=== PATIENT | male | born 1985 | race Caucasian/White ===

== ENCOUNTER 2020-10-25 13:10 | Emergency (ER) | payer SELFPAY ==
[2020-10-25 15:06] LABS: Basophils % 0.8 % (0-1.3); Hematocrit 45.1 % (39.6-49.0); RBC Red Blood Cell Count 4.89 M/uL (4.33-5.43)
[2020-10-25 15:16] LABS: Bilirubin Direct 0.2 mg/dL (0-0.2); Bilirubin Total 0.7 mg/dL (0.2-1.0); Protein, Total 8.1 g/dL (6.4-8.2)
[2020-10-25 15:28] LABS: Urine Appearance CLEAR (Clear); Urine Bilirubin NEGATIVE (Negative); Urine Blood NEGATIVE (Negative); Urine Color YELLOW (Yellow); Urine Glucose NEGATIVE (Negative); Urine Protein NEGATIVE (Negative); Urine Urobilinogen 0.2 mg/dL (0.2-1.0)
[2020-10-25 15:29] LABS: Urine Microscopic Reflex NO UMIC
--- NOTE | 2020-10-25 19:15 | RAD REPORT ---
EXAM DESCRIPTION: CTAbdomen Pelvis W Contrast - 10/25/2020 7:06 pm CLINICAL HISTORY: . abd pain COMPARISON: No comparisons TECHNIQUE: Biphasic CT imaging of the abdomen and pelvis was performed with 100 ml non-ionic IV cont rast. All CT scans are performed using dose optimization technique as appropriate and may include automated exposure control or mA/KV adjustment according to patient size. FINDINGS: Lower chest: No acute abnormality. Liver: No acute abnormality or suspicious lesions. Hepatic steatosis. Biliary: Cholelithiasis without CT evidence acute cholecystitis. Stomach: No significant focal abnormality. Duodenum: No significant focal abnormality. Pancreas: No significant abnormality. Spleen: No significant abnormality. Adrenal: No suspicious lesions. Kidney/ureter: No hydronephrosis. No renal calculi. Retroperitoneum: No retroperitoneal adenopathy. Vascular: No aneurysm. Bowel: No significant focal abnormality. Normal appendix. Peritoneum: No ascites or free air. Bladder: Grossly unremarkable. Reproductive: No adnexal masses. Bones: No acute fracture. Other: n/a IMPRESSION: No acute intra-abdominal or pelvic finding. Cholelithiasis without CT evidence of acute cholecystitis. Hepatic steatosis.
--- NOTE | 2020-10-25 21:16 | RAD REPORT ---
EXAM DESCRIPTION: US - Abdomen Exam Limited - 10/25/2020 8:47 pm CLINICAL HISTORY: gallbladder COMPARISON: Abdomen Pelvis W Contrast dated 10/25/2020 FINDINGS: The gallbladder demonstrates calcified gallstones. No pericholecystic fluid or gallbladder wall thickening. The common bile duct is normal measuring 3 millimeter. The liver demonstrates no findings of intrahepatic biliary dilatation. IMPRESSION: Cholelithiasis without sonographic evidence of acute cholecystitis.
--- NOTE | 2020-10-25 21:30 | ER ---
Nurse's Notes [facility] Name: Rickey Orozco Age: 35 yrs Sex: Male : 1985 Arrival Date: 10/25/2020 Time: 13:16 Bed 16 Private MD: Diagnosis: Other cholelithiasis without obstruction Presentation: 10/25 14:30 Chief complaint: Patient states: RLQ pain that began "while ago but yesterday got more aa5 frequent and painful". Pt denies nausea/vomiting. Coronavirus screen: At this time, the client does not indicate any symptoms associated with coronavirus-19. Ebola Screen: Patient negative for fever greater than or equal to 101.5 degrees Fahrenheit, and additional compatible Ebola Virus Disease symptoms. Initial Sepsis Screen: Does the patient meet any 2 criteria? No. Patient's initial sepsis screen is negative. Does the patient have a suspected source of infection? No. Patient's initial sepsis screen is negative. Risk Assessment: Do you want to hurt yourself or someone else? Patient reports no desire to harm self or others. Onset of symptoms was 2020. 14:30 Method Of Arrival: Ambulatory aa5 14:30 Acuity: GALLITO 3 aa5 Historical: - Allergies: 14:31 No Known Allergies; aa5 - PMHx: 14:31 None; aa5 - PSHx: 14:31 hernia as an ; aa5 - Immunization history:: Client reports receiving the 2nd dose of the Covid vaccine. - Social history:: Smoking status: Patient reports the use of cigarette tobacco products, smokes one-half pack cigarettes per day. Screenin:51 Abuse screen: Denies threats or abuse. Denies injuries from another. Nutritional ch5 screening: No deficits noted. Tuberculosis screening: No symptoms or risk factors identified. Fall Risk None identified. Assessment: 16:51 Reassessment: No changes from previously documented assessment. GI: Bowel sounds ch5 hypoactive in right upper quadrant, left upper quadrant, right lower quadrant and left lower quadrant 16:51 Pain: Complains of pain in abdomen Pain currently is 0 out of 10 on a pain scale. Pain ch5 began Onset "months ago but worst yesterday". GI: Reports. Vital Signs: 14:30 BP 135 / 79; Pulse 72; Resp 18 S; Temp 98.1(TE); Pulse Ox 99% on R/A; Height 6 ft. 2 aa5 in. (187.96 cm) (R); 16:57 BP 136 / ???; Weight 102.06 kg; Height 6 ft. 2 in. (187.96 cm); Pain 0/10; ch5 22:11 BP 134 / 86; Pulse 72; Resp 18; Temp 98.2; Pulse Ox 99% on R/A; ch4 16:57 Body Mass Index 28.89 (102.06 kg, 187.96 cm) 5 ED Course: 13:16 Patient arrived in ED. as 14:30 Arm band placed on. aa5 14:31 Triage completed. aa5 16:44 John Paul Luz PA is PHCP. cp 16:44 Sita Lr MD is Attending Physician. cp 16:51 Edvin Mistry, RN is Primary Nurse. 5 16:51 Patient has correct armband on for positive identification. Bed in low position. Call ch5 light in reach. Side rails up X2. 16:51 No provider procedures requiring assistance completed. Inserted saline lock: 20 gauge ch5 in right antecubital area, using aseptic technique. 21:28 Jed Galdamez MD is Referral Physician. cp 22:12 IV discontinued, intact, bleeding controlled, No redness/swelling at site. Pressure ch4 dressing applied. Administered Medications: No medications were administered Outcome: 21:29 Discharge ordered by . cp 22:12 Patient left the ED. ch4 Signatures: Surekha Sen Audri, RN RN 5 John Paul Luz PA PA cp Hanna Davis, GRECIA PAIGE [facility] Edvin Mistry RN RN [facility]
--- NOTE | 2020-10-25 21:30 | EDPHYS ---
Physician Documentation [facility] Name: Rickey Orozco Age: 35 yrs Sex: Male : 1985 Arrival Date: 10/25/2020 Time: 13:16 Bed 16 Private MD: ED Physician Sita Lr HPI: 10/25 16:50 This 35 yrs old Male presents to ER via Ambulatory with complaints of cp Abdominal Pain. 16:50 The patient presents with abdominal pain right flank. cp 16:50 Onset: The symptoms/episode began/occurred "awhile ago" became persistent yesterday. cp The symptoms do not radiate. Associated signs and symptoms: Pertinent negatives: anorexia, chest pain, constipation, diarrhea, dysuria, fever, testicular pain, vomiting. The symptoms are described as achy, waxing/waning. Historical: - Allergies: 14:31 No Known Allergies; aa5 - PMHx: 14:31 None; aa5 - PSHx: 14:31 hernia as an ; aa5 - Immunization history:: Client reports receiving the 2nd dose of the Covid vaccine. - Social history:: Smoking status: Patient reports the use of cigarette tobacco products, smokes one-half pack cigarettes per day. ROS: 17:00 Constitutional: Negative for body aches, chills, fever, poor PO intake. cp 17:00 Eyes: Negative for injury, pain, redness, and discharge. cp 17:00 ENT: Negative for ear pain, sore throat, difficulty swallowing, difficulty handling secretions. 17:00 Cardiovascular: Negative for chest pain, palpitations. 17:00 Respiratory: Negative for cough, shortness of breath, wheezing. 17:00 Abdomen/GI: Positive for abdominal pain, nausea, of the anterior aspect of right lateral abdomen and right lower quadrant, Negative for vomiting, diarrhea, constipation, anorexia, black/tarry stool, rectal bleeding. 17:00 Back: Negative for radiated pain. 17:00 Neuro: Negative for altered mental status, headache, weakness. 17:00 All other systems are negative. Exam: 17:05 Constitutional: The patient appears in no acute distress, alert, awake, non-toxic, well cp developed, well nourished, obese. 17:05 Head/Face: Normocephalic, atraumatic. cp 17:05 Eyes: Periorbital structures: appear normal, Conjunctiva: normal, no exudate, no injection, Sclera: no appreciated abnormality, Lids and lashes: appear normal, bilaterally. 17:05 ENT: External ear(s): are unremarkable, Nose: is normal, Posterior pharynx: Airway: no evidence of obstruction, patent. 17:05 Chest/axilla: Inspection: normal. 17:05 Cardiovascular: Rate: normal. 17:05 Respiratory: the patient does not display signs of respiratory distress, Respirations: normal, no use of accessory muscles, no retractions. 17:05 Abdomen/GI: Inspection: abdomen appears normal, Bowel sounds: active, all quadrants, Palpation: soft, in all quadrants, mild abdominal tenderness, in the anterior aspect of right lateral abdomen and right lower quadrant, rebound tenderness, is not appreciated, involuntary guarding, is not appreciated. 17:05 Back: CVA tenderness, is absent. 17:05 Skin: no rash present. Vital Signs: 14:30 BP 135 / 79; Pulse 72; Resp 18 S; Temp 98.1(TE); Pulse Ox 99% on R/A; Height 6 ft. 2 aa5 in. (187.96 cm) (R); 16:57 BP 136 / ???; Weight 102.06 kg; Height 6 ft. 2 in. (187.96 cm); Pain 0/10; ch5 22:11 BP 134 / 86; Pulse 72; Resp 18; Temp 98.2; Pulse Ox 99% on R/A; ch4 16:57 Body Mass Index 28.89 (102.06 kg, 187.96 cm) ch5 MDM: 16:46 Patient medically screened. cp 17:00 Differential diagnosis: appendicitis, cholecystitis, Cholelithiasis, diverticulitis, cp non-specific abd pain, Testicular Torsion, Ureterolithiasis, urinary tract infection, colitis. 21:28 Data reviewed: vital signs, nurses notes, lab test result(s), radiologic studies, CT cp scan, ultrasound. 21:28 Counseling: I had a detailed discussion with the patient and/or guardian regarding: the cp historical points, exam findings, and any diagnostic results supporting the discharge/admit diagnosis, lab results, radiology results, the need for outpatient follow up, for definitive care, a general surgeon, to return to the emergency department if symptoms worsen or persist or if there are any questions or concerns that arise at home. Special discussion: Based on the patient's Hx, exam, and Dx evaluation, there is no indication for emergent surgery or inpatient Tx. It is understood by the patient/guardian that if the Sx's persist or worsen they need to return immediately for re-evaluation. 10/25 14:39 Order name: Basic Metabolic Panel pm1 10/25 14:39 Order name: CBC with Diff pm1 10/25 14:39 Order name: Hepatic Function pm1 10/25 14:39 Order name: Lipase pm1 10/25 15:46 Order name: CBC with Automated Diff; Complete Time: 16:46 EDMS 10/25 15:46 Order name: Basic Metabolic Panel; Complete Time: 16:46 EDMS 10/25 16:46 Interpretation: Normal except: CL 112; GFR 88. 10/25 14:39 Order name: IV Saline Lock; Complete Time: 14:39 pm1 10/25 14:39 Order name: CT Abd/Pelvis - IV Contrast Only pm1 10/25 15:46 Order name: Liver (Hepatic) Function; Complete Time: 16:46 EDMS 10/25 16:47 Interpretation: Normal except: AST 43; ALT 126; GLOB 4.1; A/G 1.0. cp 10/25 15:46 Order name: Lipase; Complete Time: 16:46 EDMS 10/25 15:46 Order name: Urinalysis; Complete Time: 16:46 EDMS 10/25 19:16 Order name: CT; Complete Time: 19:29 EDMS 10/25 21:18 Order name: US; Complete Time: 21:27 EDMS 10/25 21:28 Interpretation: Report reviewed. 10/25 14:39 Order name: Labs collected and sent; Complete Time: 14:39 pm1 Administered Medications: No medications were administered Disposition Summary: 10/25/20 21:29 Discharge Ordered Location: Home cp Problem: new cp Symptoms: have improved cp Condition: Stable cp Diagnosis - Other cholelithiasis without obstruction cp Followup: cp - With: Jed Galdamez MD - When: 1 - 2 days - Reason: Recheck today's complaints Discharge Instructions: - Cholelithiasis cp - Discharge Summary Sheet ch5 Forms: - SBAR form ch5 - Medication Reconciliation Form cp - Thank You Letter cp - Antibiotic Education cp - Prescription Opioid Use cp Prescriptions: - Zofran 4 mg Oral Tablet - take 1 tablet by ORAL route every 12 hours As needed; 20 tablet; Refills: 0, cp Product Selection Permitted - dicyclomine 20 mg Oral Tablet - take 1 tablet by ORAL route 4 times per day; 30 tablet; Refills: 0, Product cp Selection Permitted - Cipro 500 mg Oral Tablet - take 1 tablet by ORAL route every 12 hours for 7 days; 14 tablet; Refills: 0, cp Product Selection Permitted Addendum: 10/27/2020 08:59 Co-signature as Attending Physician, Sita Lr MD I agree with the assessment and s p3 plan of care. Signatures: Dispatcher [employer] EDMS Kemi Dc, RN RN aa5 John Paul Luz PA PA cp Armand Valderrama, INTER[employer] TEACHER [employer] TE[employer]ER pm1 Sita Lr MD MD sp3 Corrections: (The following items were deleted from the chart) 10/25 22:04 21:18 Abdomen Limited+[email or web address] ordered. EDND EDMS
[2020-10-25 22:23] VITALS: BP 134/86; TEMP 98.2; O2SAT 99
== END 2020-10-25 22:12 | disposition home or self-care (01) ==
LOC: ER 13:10
DX: K80.80 Other cholelithiasis without obstruction (principal); F17.210 Nicotine dependence, cigarettes, uncomplicated
CPT/HCPCS: 36415; 74177; 76705; 80048; 80076; 81003; 83690; 85025; 99283; Q9967